=== PATIENT | female | born 1965 | race Caucasian/White ===

== ENCOUNTER → 2020-04-14 15:52 | Outpatient (CLI) | payer BC, SELFPAY | PROVIDERS: PCP Family Medicine; Visit Provider Nurse Practitioner Family | DX: Z03.818 Encounter for observation for suspected exposure to other biological agents ruled out (principal) | CPT/HCPCS: U0003 ==

== ENCOUNTER → 2021-03-24 09:54 | Outpatient (CLI) | payer BC, SELFPAY | PROVIDERS: PCP Nurse Practitioner Family; Visit Provider Nurse Practitioner | DX: Z20.822 Contact with and (suspected) exposure to COVID-19 (principal); U07.1 COVID-19 | CPT/HCPCS: C9803; U0003; U0005 ==

== ENCOUNTER → 2021-04-09 09:17 | Outpatient (CLI) | payer BC, SELFPAY ==
--- NOTE | 2021-04-09 09:21 | XR_ITS ---
PROCEDURE: XR CHEST PORTABLE CLINICAL HISTORY: COVID TESTING COMPARISON: CR CXR CHEST(2 VIEWS-NOT PORTABLE) from 10/11/2016 FINDINGS: The cardiomediastinal silhouette and pulmonary vascularity are within normal limits. The lungs are clear without infiltrates, suspicious nodules, or pleural effusions. There are calcified right paratracheal and right hilar nodes. There is a small calcified granuloma right lower lobe. No acute bony abnormalities. IMPRESSION: Old granulomatous disease, no acute chest pathology seen Dictated by: Dr. Rashard Neville MD 04/09/2021 10:29 Dr. Rashard Neville MD in [place] 04/09/2021 10:29
== END ==
PROVIDERS: PCP Nurse Practitioner Family; Visit Provider Nurse Practitioner Family
DX: U07.1 COVID-19 (principal); R06.02 Shortness of breath
CPT/HCPCS: 71045

== ENCOUNTER → 2022-01-20 13:45 | Outpatient (POV) | payer BC, SELFPAY ==
[2022-01-20 13:50] VITALS: BP 179/101; PULSE 89; RESP 20; O2SAT 97; BMI 34.3
--- NOTE | 2022-01-20 14:06 | HMH.PMCON ---
Assessment and Plan (1) Right shoulder pain Status: Acute Category: Medical Code(s): M25.511 - Pain in right shoulder - Assessment and plan all Dx Assessment and Plan for all problems:: She does have significant pain in her right shoulder with activity. Patient had point tenderness along her right upper trapezius area during exam. This is not an acute injury. We will order right shoulder x-rays. I have discussed with the patient regarding trigger point injections of her right shoulder. Risk and benefits were discussed with the patient. She would like to proceed forward with this injection. We will schedule her today for TPI of her right upper trapezius. Patient has been instructed to contact the clinic with any concerns before the next appointment. Dr. Rodriguez has reviewed this note and agrees with this plan of care. This note was dictated using voice recognition software and make contain errors or omissions. HPI - Data of Consult Patient: new to practice Consult date: 01/20/22 Requesting Physician: DELROY Gupta - Consult Narrative Reason for consult: Right shoulder pain History of present illness: Ms. Vanegas is a 57 year old female presents today as a new patient. She is a referral from the [address] [place] [address]. Patient states her pain is in her right shoulder that does radiate into her upper right arm. She rates her pain a 5 out of 10 today. she states this pain started about a year ago. She stated she was at work and went to throw something away in the trash can and immediately felt a tearing, tingling sensation. She states it did feel hot to touch. She thought she might have pulled a muscle and has not seen her primary care regarding this matter. She stated she thought the pain would improve over time however she states that she still continues to have pain with increased activity. Range of motion of her right shoulder is limited. Activities of daily living such as making her bed is difficult. She states she has used ibuprofen and ice at the beginning of this injury with minimal relief. She states she has also tried topical application of the lidocaine patch with no relief. Patient is interested in having imaging and possible injective therapy at this time. Her Hong is [phone]. It has been reviewed and is appropriate. CC: DELROY Gupta [facility] History I have reviewed the patient's past medical history: Yes *Have you ever received a pneumonia vaccine?: No *Have you received a flu vaccine this season?: No Other Surgeries: Yes: Tubal Ligation Amputation: No Fractures: No - *Social History Smoking Status: Never smoker Alcohol Intake: never Alcohol Intake Frequency:: other Substance Use Type: denies use *Occupational Status:: employed Housing: house Household Members: family *Travel in the last 8 weeks: Inside the [place] Family Hx:: Non-contributory Review of Systems - Review of Systems Review of systems:: pertinent systems reviewed and negative unless documented below Review of Systems: General: No recent weight changes, no fever, no sleep disturbances Respiratory: No cough, no shortness of air, no recurring pulmonary infections Cardiovascular/peripheral vascular: No chest pain, no palpitations, no edema, no shortness of breath Gastrointestinal: No new onset incontinence, normal bowel movements reported Genitourinary: No new onset incontinence Musculoskeletal: Right shoulder pain Psychiatric: [Normal mood/affect] Neurological: [Denies weakness in extremities], [denies balance issues] Meds Home Medications Medication Instructions Recorded Confirmed Type No Known Home Medications 01/20/22 01/20/22 History Allergies Allergy/AdvReac Type Severity Reaction Status Date / Time Penicillins [PENICILLINS] Allergy Unknown Verified 06/22/20 10:19 pseudoephedrine Allergy Unknown Verified 06/22/20 10:19 [PSEUDOEPHEDRINE] Objective Narrative: Physical Exam: General: Alert and
== END ==
PROVIDERS: Visit Provider Student in an Organized Health Care Education/Training Program
DX: M25.511 Pain in right shoulder (principal)
CPT/HCPCS: 99202; G0463

== ENCOUNTER → 2022-01-20 14:13 | Outpatient (CLI) | payer BC, SELFPAY ==
--- NOTE | 2022-01-20 14:17 | XR_ITS ---
FINAL REPORT CLINICAL HISTORY: RIGHT SHOULDER PAIN FINDINGS: RIGHT SHOULDER 3 views of the right shoulder were obtained. There is no acute fracture or dislocation. There is mild degenerative change of the acromioclavicular joint. There is no soft tissue abnormality. IMPRESSION: Mild degenerative change of the acromioclavicular joint. Reviewed, Interpreted and Dictated by Daniel King III, MD Transcribed by Rachelle Olea Authenticated and [facility]
== END ==
PROVIDERS: PCP Nurse Practitioner Family; Visit Provider Student in an Organized Health Care Education/Training Program
DX: M25.511 Pain in right shoulder (principal)
CPT/HCPCS: 73030

== ENCOUNTER 2023-11-16 10:52 | Outpatient (CLI) | payer BC, SELFPAY ==
--- NOTE | 2023-11-16 10:52 | MM_ITS ---
PROCEDURE INFORMATION: Exam: MG Bilateral Screening 3D Mammography Exam date and time: 11/16/2023 10:40 AM Age: 58 years old Clinical indication: Screening mammogram TECHNIQUE: Imaging protocol: Bilateral Screening tomosynthesis and 2D mammography including computer-aided detection (CAD) when performed. COMPARISON: 1. MG DMSB DIG MAMM-SCREEN GITA W/CAD 03/24/2017 4:42 PM 2. MG DMSB DIGITAL MAMM-SCREEN BILATERAL 10/01/2010 1:09 PM 3. MG DIGMAMMDX MAMMOGRAM DX-[facility]PER N/C 06/09/2009 1:24 PM 4. MG DIGMAMMS MAMMOGRAM SCREEN-[facility]IPYARD HELPER N/C 05/22/2009 1:24 PM FINDINGS: MAMMOGRAPHY: Breast composition: There are scattered areas of fibroglandular density. Mass: None. Architectural distortion: No new or suspicious architectural distortion. Calcifications: No new or suspicious calcifications are present Asymmetric density: No new or suspicious asymmetric density is present Skin thickening: None. Axillary adenopathy: None. IMPRESSION: No mammographic evidence of malignancy. Recommend annual screening mammography unless otherwise clinically indicated. ASSESSMENT: BI-RADS category 1: Negative.
== END 2023-11-16 23:59 | disposition home or self-care (01) ==
LOC: RAD 10:52
PROVIDERS: PCP Nurse Practitioner Family; Visit Provider Nurse Practitioner Obstetrics & Gynecology
DX: Z12.31 Encounter for screening mammogram for malignant neoplasm of breast (principal)
CPT/HCPCS: 77063; 77067

== ENCOUNTER 2024-12-02 09:10 | Outpatient (CLI) | payer SELFPAY ==
[2024-12-02 14:45] LABS: Basophils # 0.1 K/mm3 (0-0.2); Eosinophils # 0.2 Kmm3 (0.0-0.4); Eosinophils % 3.1 % (0.1-12.0); Hematocrit 43.1 % (37.0-47.0); Immature Granulocytes # 0.01 10^3uL; Immature Granulocytes % 0.1 %; Lymphocytes % 30.2 % (10-50); Mean Corpuscular HGB Conc 32.5 g/dL (31.8-35.4); Mean Corpuscular Hemoglobin 26.8 pg (27.0-31.2); Mean Corpuscular Volume 82.6 fl (81-99); Mean Platelet Volume 9.2 fl (7.4-10.4); Monocytes # 0.5 K/mm3 (0.1-1.0); Monocytes % 7.7 % (1.7-9.3); Neutrophils # 3.9 K/mm3 (1.8-7.8); Neutrophils % 57.9 % (37.0-80.0); Nucleated Red Blood Cells # 0 10^3/uL; Nucleated Red Blood Cells % 0 %; Platelet Count 230 K/mm3 (142-424); Red Blood Count 5.22 M/mm3 (4.20-5.40); Red Cell Distribution Width 13.3 % (11.5-17.5); Red Cell Distribution Width-SD 39.9 fL; White Blood Count 6.8 K/mm3 (4.8-10.8)
[2024-12-02 15:19] LABS: Alanine Aminotransferase 19 U/L (12-78); Albumin Level 4.2 g/dl (3.5-5.0); Albumin/Globulin Ratio 1.6 (1.1-1.8); Alkaline Phosphatase 41 U/L (38-126); Anion Gap 10.2 mEq/L (5-15); Aspartate Amino Transferase 23 U/L (14-36); Bilirubin,Total 1.2 mg/dl (0.2-1.3); Blood Urea Nitrogen 10 mg/dl (7-17); Carbon Dioxide 31 mmol/L (22.0-30.0); Chloride 104 mmol/L (98-107); Chol/HDL Ratio 5.9 (1-3.5); Cholesterol 217 mg/dl (140-200); Estimated Glomerular Filt Rate 74 ml/min (>60); GFR (African American) 89 ML/MIN (>60); Globulin 2.7 g/dL (1.3-3.2); Glucose 78 mg/dl (74-100); HDL Cholesterol 37 mg/dl (40-60); Potassium 4.2 mmoL/L (3.5-5.1); Sodium 141 mmol/L (136-145); Total Protein,Serum 6.9 g/dl (6.3-8.2); Triglycerides 181 mg/dl (30-150); VLDL Cholesterol 36 mg/dL (0-40)
[2024-12-02 15:29] LABS: Direct LDL Cholesterol 124.88 mg/dL (100-129)
[2024-12-02 15:48] LABS: Thyroid Stimulating Hormone 2.08 uIU/mL (0.465-4.68)
== END 2024-12-02 23:59 | disposition home or self-care (01) ==
LOC: LAB.DROPOF 12-03 11:29
PROVIDERS: PCP Nurse Practitioner Family; Visit Provider Nurse Practitioner Family
DX: I10 Essential (primary) hypertension (principal)
CPT/HCPCS: 80053; 80061; 84443; 85025